=== PATIENT | female | born 1980 | race Caucasian/White ===

== ENCOUNTER 2019-01-14 16:07 | Emergency (ER) | payer MEDICAID, OTHER ==
[~2019-01-14] VITALS: Ht 170.2 cm; Wt 126.2 kg
[2019-01-14 16:09] VITALS: BP 153/93
== END 2019-01-14 16:32 | disposition home or self-care (01) ==
LOC: ED 16:15
DX: K01.1 Impacted teeth (principal); K02.9 Dental caries, unspecified; E66.9 Obesity, unspecified
CPT/HCPCS: 99283